=== PATIENT | male | born 1970 | race Two or more races ===

== ENCOUNTER 2022-02-20 07:26 | Day surgery (SDC) | payer OTHER ==
[~2022-02-20] VITALS: Ht 175.3 cm; Wt 83.0 kg
[2022-02-20 08:15] LABS: Basophils # (auto) 0 10 ^3/uL (0-0.2); Basophils % (auto) 0.3 % (0.0-2.0); Eosinophils # (auto) 0 10 ^3/uL (0-0.8); Eosinophils % (auto) 0.6 % (0.0-7.0); Hematocrit 49.2 % (41.0-53.0); Hemoglobin 16.6 g/dL (13.5-17.5); Lymphocytes # (auto) 1.6 10 ^3/uL (0.4-5.4); Lymphocytes % (auto) 32.4 % (10.0-50.0); Mean Corpuscular Hgb Conc. 33.7 g/dL (32.0-36.0); Mean Corpuscular Volume 86.1 fL (80.0-100.0); Monocytes # (auto) 0.3 10 ^3/uL (0-1.3); Monocytes % (auto) 6.4 % (0.0-12.0); Neutrophils # (auto) 3.1 10 ^3/uL (1.6-8.6); Neutrophils % (auto) 60.3 % (37.0-80.0); Nucleated Red Blood Cells % 0.1 %; Red Blood Cells 5.72 10^6/uL (4.5-5.90); Red Cell Distribution Width 13.1 % (11.8-14.3); White Blood Cell 5.1 10^3/uL (4.4-10.8)
[2022-02-20 08:32] LABS: Albumin 3.8 g/dL (3.4-5.0); Calcium 8.7 mg/dL (8.5-10.1); INR 1.04 (0.9-1.15); Partial Thromboplastin Time 30.5 sec (24.6-33.4); Potassium 3.8 mmol/L (3.5-5.1)
[2022-02-20 08:35] LABS: BUN/Creatinine Ratio 10.7; Bilirubin, Total 3.2 mg/dL (0.2-1.0); Total Protein 7.4 g/dL (6.4-8.2)
[2022-02-20] MEDS ORDERED: LIDOCAINE VISCOUS 2% 15ML UD ONE (10:35)
[2022-02-20] MEDS ORDERED: MEPERIDINE HCL (25 MG/ML) 1ML VIAL ONE (11:09)
[2022-02-20] MEDS ORDERED: MIDAZOLAM HCL 2MG/2ML 2ml VIAL (1mg/ml) ONE (11:09)
[2022-02-20] MEDS ORDERED: fentaNYL CITRATE 100 MCG/2 ML VL ONE (11:09)
[2022-02-20] MEDS ORDERED: KETAMINE HCL 10 ML ONE (11:18)
[2022-02-20] MEDS ORDERED: DexAMETHasone SOD PHOS 10MG/1ML VIAL INJ ONE (11:18)
[2022-02-20] MEDS ORDERED: PROPOFOL 10 MG/ML 20 ML IV ONE (11:18)
[2022-02-20 12:15] VITALS: BP 114/80
[2022-02-20] MEDS ORDERED: ePHEDrine SULFATE 50 MG/ML AMP IV PRN ×2 (12:15→12:30)
[2022-02-20] MEDS ORDERED: ONDANSETRON HCL 4 MG/2 ML VIAL IV PRN ×2 (12:15→12:30)
[2022-02-20] MEDS ORDERED: HYDROmorphone HCL 2 MG/ML VL/or syr IV PRN ×2 (12:15→12:30)
[2022-02-20] MEDS ORDERED: LABETALOL HCL 5 MG/ML 4ML SYRINGE IV PRN ×2 (12:15→12:30)
[2022-02-20] MEDS ORDERED: MORPHINE SULFATE 4 MG/ML SYR/VIAL IV PRN ×2 (12:15→12:30)
[2022-02-20] MEDS ORDERED: MIDAZOLAM HCL 2MG/2ML 2ml VIAL (1mg/ml) IV PRN ×2 (12:15→12:30)
== END 2022-02-20 11:50 | disposition home or self-care (01) ==
LOC: GI 07:26
PROVIDERS: ATTEND Internal Medicine Gastroenterology
DX: R19.5 Other fecal abnormalities (principal); K21.00 Gastro-esophageal reflux disease with esophagitis, without bleeding; K29.90 Gastroduodenitis, unspecified, without bleeding; K44.9 Diaphragmatic hernia without obstruction or gangrene; K63.5 Polyp of colon; K64.8 Other hemorrhoids; K29.50 Unspecified chronic gastritis without bleeding; K31.89 Other diseases of stomach and duodenum; I10 Essential (primary) hypertension; Z20.822 Contact with and (suspected) exposure to COVID-19
CPT/HCPCS: 36415; 43239; 45380; 80053; 85025; 85610; 85730; 88305; 88342; J1100; J2175; J2250; J2704; J3010; J7030; 99152; 99153